=== PATIENT | female | born 1940 | race African-American/Black ===

== ENCOUNTER 2020-05-10 10:00 | Inpatient (IN) | payer OTHER ==
[~2020-05-10] VITALS: Ht 162.6 cm; Wt 61.0 kg
[2020-05-10] MEDS ORDERED: SODIUM CHLORIDE 0.9% 1000ML BAG (SEPSIS BOLUS) IV ONE (10:15)
[2020-05-10 10:43] LABS: BASOPHILS % 0.4 % (0.0-2.0); HEMATOCRIT. 48.6 % (36.0-48.0); HEMOGLOBIN. 15.5 g/dL (12.0-16.0); LYMPHOCYTES % 11.9 % (20.0-50.0); MEAN CORPUSCULAR HEMOGLOBIN 29.3 pg (28.0-32.0); MEAN CORPUSCULAR VOLUME 91.6 fL (81.0-99.0); MEAN PLATELET VOLUME 10.2 fl (7.4-10.4); MONOCYTES % 10.2 % (2.0-8.0); NEUTROPHILS % 77.5 % (40.0-76.0); PLATELET 353 x1000/uL (130-400); RED BLOOD CELL COUNT 5.31 mill/uL (4.2-5.4); RED CELL DISTRIBUTION WIDTH 15.1 % (11.6-14.6)
[2020-05-10 10:54] LABS: INR 1.1; PROTHROMBIN TIME 11.5 sec (9.6-11.0)
[2020-05-10 10:55] LABS: CHLORIDE 89 mEq/L (98-107)
[2020-05-10 11:09] LABS: CLARITY URINE CLOUDY (CLEAR); COLOR URINE YELLOW (YELLOW); KETONES URINE 1+ (NEGATIVE); LEUKOCYTE ESTERASE URINE 2+ (NEGATIVE); NITRITE URINE NEGATIVE (NEGATIVE); OCCULT BLOOD URINE 2+ (NEGATIVE); PROTEIN URINE TRACE (NEGATIVE); SPECIFIC GRAVITY URINE 1.028 (1.005-1.030); UROBILINOGEN URINE 0.2 E.U./dL (0.2-1.0)
[2020-05-10] MEDS ORDERED: CEFTRIAXONE 1 G PREMIX 50 ML IV ONE (11:30)
[2020-05-10] MEDS ORDERED: INSULIN REGULAR (HUMULIN R) 300UNITS/3ML VIAL IV ONE (11:30)
[2020-05-10] MEDS ORDERED: INSULIN REGULAR (DRIP) 100 UNITS in SODIUM CHLORIDE 0.9% 99 ML IV SCH (11:30)
[2020-05-10 13:07] LABS: BG BASE EXCESS -3.2 mmol/L (-2.0-2.0); BG CARBOXYHEMOGLOBIN 1.1 % (0.5-1.5); BG DEOXYHEMOGLOBIN 7.6 % (0.0-5.0); BG FRACTION INSPIRED OXYGEN 21; BG HCO3 ACT 18.9 mmol/L (22.0-26.0); BG METHEMOGLOBIN 0.4 % (0.0-1.5); BG OXYGEN SATURATION 92.3 % (92.0-98.5); BG OXYHEMOGLOBIN 90.9 % (94.0-97.0); BG PCO2 27.4 mmHg (35.0-45.0); BG PH 7.457 (7.350-7.450); BG PO2 69.1 mmHg (75.0-100.0); BG TOTAL HEMOGLOBIN 16.4 g/dL (12.0-18.0); BG VENT MODE ROOM AIR
[2020-05-10] MEDS ORDERED: DOCUSATE SODIUM 100MG CAPSULE PO PRN (16:30)
[2020-05-10] MEDS ORDERED: ACETAMINOPHEN 325MG TABLET PO PRN (16:30)
[2020-05-10] MEDS ORDERED: HYDROCODONE/ACETAMINOPHEN 5/325MG TABLET PO PRN (16:30)
[2020-05-10] MEDS ORDERED: INSULIN REGULAR (HUMULIN R) 300UNITS/3ML VIAL SUBCUT NR (16:30)
[2020-05-10] MEDS ORDERED: CLONIDINE 0.1MG TABLET PO PRN (16:30)
[2020-05-10] MEDS ORDERED: ONDANSETRON HCL 4MG/2ML INJ IV PRN (16:30)
[2020-05-10] MEDS: DEXTROSE 5% WATER 1,000 ML IV SCH (16:30)
[2020-05-10] MEDS ORDERED: LORAZEPAM 0.5MG TABLET PO PRN (16:30)
[2020-05-10 17:32] LABS: FOLIC ACID (FOLATE) SERUM >20 ng/mL ng/mL (>5.38)
[2020-05-10 17:44] LABS: VITAMIN B12 SERUM >2000 pg/mL pg/mL (211-911)
[2020-05-10] MEDS: INSULIN LISPRO 100 UNITS/ML SUBCUT SCH (17:50)
[2020-05-10 17:56] LABS: HEPATITIS B SURFACE ANTIGEN NEGATIVE
[2020-05-10 18:26] LABS: HEPATITIS A AB IGM NEGATIVE (NEGATIVE)
[2020-05-10] MEDS ORDERED: INSULIN GLARGINE UD 100 UNITS/ML SYR SUBCUT SCH (22:00)
[2020-05-11] VITALS (7 sets, daily range): BP systolic 107–156; BP diastolic 68–95
[2020-05-11] MEDS: INSULIN LISPRO 100 UNITS/ML SUBCUT SCH ×4 (07:05→21:28)
[2020-05-11] MEDS: DEXTROSE 5% WATER 1,000 ML IV SCH ×2 (07:54→20:00)
[2020-05-11] MEDS ORDERED: CEFTRIAXONE 1 G PREMIX 50 ML IV SCH (09:00)
[2020-05-11 10:03] LABS: BASOPHILS % 0.6 % (0.0-2.0); HEMATOCRIT. 43.1 % (36.0-48.0); HEMOGLOBIN. 14.5 g/dL (12.0-16.0); LYMPHOCYTES % 10.7 % (20.0-50.0); MEAN CORPUSCULAR HEMOGLOBIN 29.7 pg (28.0-32.0); MONOCYTES % 9.6 % (2.0-8.0); NEUTROPHILS % 79.1 % (40.0-76.0); PLATELET 305 x1000/uL (130-400); RED CELL DISTRIBUTION WIDTH 14.1 % (11.6-14.6)
[2020-05-11 10:10] LABS: CHLORIDE 118 mEq/L (98-107)
[2020-05-11] MEDS ORDERED: DEXTROSE 50% WATER 50ML SYRINGE IV PRN (15:45)
[2020-05-11] MEDS: INSULIN GLARGINE UD 100 UNITS/ML SYR SUBCUT SCH ×2 (18:06→21:27)
[2020-05-11] MEDS: BLOOD SUGAR DIAGNOSTIC STRIP TEST SCH (18:06)
[2020-05-12] VITALS (9 sets, daily range): BP systolic 120–147; BP diastolic 67–85
[2020-05-12] MEDS: BLOOD SUGAR DIAGNOSTIC STRIP TEST SCH ×5 (00:59→21:57)
[2020-05-12] MEDS: INSULIN LISPRO 100 UNITS/ML SUBCUT SCH ×4 (08:00→21:56)
[2020-05-12 08:01] LABS: BASOPHILS % 0.6 % (0.0-2.0); EOSINOPHILS % 0.4 % (0.0-5.0); HEMATOCRIT. 45.4 % (36.0-48.0); HEMOGLOBIN. 14.7 g/dL (12.0-16.0); LYMPHOCYTES % 14.1 % (20.0-50.0); MEAN CORPUSCULAR HEMOGLOBIN 29.5 pg (28.0-32.0); MEAN CORPUSCULAR VOLUME 91.2 fL (81.0-99.0); MEAN PLATELET VOLUME 10.5 fl (7.4-10.4); NEUTROPHILS % 75.9 % (40.0-76.0); PLATELET 282 x1000/uL (130-400); RED BLOOD CELL COUNT 4.98 mill/uL (4.2-5.4); RED CELL DISTRIBUTION WIDTH 14.7 % (11.6-14.6)
[2020-05-12 09:03] LABS: PHOSPHORUS 2.8 mg/dL (2.5-4.9)
[2020-05-12] MEDS ORDERED: POTASSIUM CHLORIDE 20MEQ/PACKET PO SCH (09:30)
[2020-05-12] MEDS: DEXTROSE 5% WATER 1,000 ML IV SCH ×2 (10:09→16:14)
[2020-05-12] MEDS ORDERED: CEFTRIAXONE 1,000 MG in DEXTROSE 5% WATER 50 ML IV SCH (12:00)
[2020-05-12] MEDS: PANTOPRAZOLE SODIUM 40 MG/VIAL IV SCH (21:56)
[2020-05-12] MEDS: INSULIN GLARGINE UD 100 UNITS/ML SYR SUBCUT SCH (21:57)
[2020-05-13] VITALS (9 sets, daily range): BP systolic 121–148; BP diastolic 54–79
[2020-05-13] MEDS: DEXTROSE 5% WATER 1,000 ML IV SCH ×2 (04:58→19:19)
[2020-05-13] MEDS: INSULIN LISPRO 100 UNITS/ML SUBCUT SCH ×3 (05:13→17:17)
[2020-05-13] MEDS: BLOOD SUGAR DIAGNOSTIC STRIP TEST SCH ×3 (05:13→17:17)
[2020-05-13 07:12] LABS: BASOPHILS % 0.9 % (0.0-2.0); HEMATOCRIT. 38.2 % (36.0-48.0); HEMOGLOBIN. 12.7 g/dL (12.0-16.0); INR 1.1; LYMPHOCYTES % 21.7 % (20.0-50.0); MEAN CORPUSCULAR HEMOGLOBIN 29.9 pg (28.0-32.0); MEAN CORPUSCULAR VOLUME 89.9 fL (81.0-99.0); MEAN PLATELET VOLUME 10.3 fl (7.4-10.4); MONOCYTES % 9.8 % (2.0-8.0); NEUTROPHILS % 65.6 % (40.0-76.0); PARTIAL THROMBOPLASTIN TIME 27.9 sec (23.4-31.0); PLATELET 260 x1000/uL (130-400); PROTHROMBIN TIME 11.1 sec (9.6-11.0); RED BLOOD CELL COUNT 4.25 mill/uL (4.2-5.4); RED CELL DISTRIBUTION WIDTH 14.5 % (11.6-14.6)
[2020-05-13 07:16] LABS: CHLORIDE 111 mEq/L (98-107)
[2020-05-13 07:23] LABS: PHOSPHORUS 3.1 mg/dL (2.5-4.9)
[2020-05-13] MEDS ORDERED: POTASSIUM CHLORIDE 20MEQ TABLET SR PO SCH (08:00)
[2020-05-13] MEDS: PANTOPRAZOLE SODIUM 40 MG/VIAL IV SCH (09:19)
[2020-05-13] MEDS ORDERED: POTASSIUM CHLORIDE INJ 40 MEQ in DEXT 5% WATER 250 ML IV NR (10:00)
[2020-05-13] MEDS: INSULIN GLARGINE UD 100 UNITS/ML SYR SUBCUT SCH ×2 (10:08→22:00)
[2020-05-13] MEDS ORDERED: MIDAZOLAM HCL 5 MG/5 ML VIAL ONE (16:30)
[2020-05-13] MEDS ORDERED: FENTANYL CITRATE/PF 50MCG/ML 2ML VIAL ONE (16:30)
[2020-05-14] VITALS (8 sets, daily range): BP systolic 120–163; BP diastolic 64–83
[2020-05-14] MEDS: INSULIN LISPRO 100 UNITS/ML SUBCUT SCH ×4 (06:00→18:00)
[2020-05-14] MEDS: BLOOD SUGAR DIAGNOSTIC STRIP TEST SCH ×4 (06:00→18:02)
[2020-05-14] MEDS: PANTOPRAZOLE SODIUM 40 MG/VIAL IV SCH ×2 (06:13→09:03)
[2020-05-14 07:14] LABS: BASOPHILS % 0.6 % (0.0-2.0); EOSINOPHILS % 2.2 % (0.0-5.0); HEMATOCRIT. 38.5 % (36.0-48.0); HEMOGLOBIN. 12.7 g/dL (12.0-16.0); LYMPHOCYTES % 22.9 % (20.0-50.0); MEAN CORPUSCULAR HEMOGLOBIN 29.6 pg (28.0-32.0); MEAN CORPUSCULAR VOLUME 90.2 fL (81.0-99.0); MEAN PLATELET VOLUME 9.6 fl (7.4-10.4); MONOCYTES % 10.7 % (2.0-8.0); NEUTROPHILS % 63.6 % (40.0-76.0); PLATELET 231 x1000/uL (130-400); RED BLOOD CELL COUNT 4.27 mill/uL (4.2-5.4); RED CELL DISTRIBUTION WIDTH 14.1 % (11.6-14.6)
[2020-05-14 07:39] LABS: CHLORIDE 111 mEq/L (98-107)
[2020-05-14 07:46] LABS: PHOSPHORUS 3.2 mg/dL (2.5-4.9)
[2020-05-14] MEDS: DEXTROSE 5% WATER 1,000 ML IV SCH (07:50)
[2020-05-14] MEDS: INSULIN GLARGINE UD 100 UNITS/ML SYR SUBCUT SCH ×2 (09:03→22:00)
[2020-05-14] MEDS ORDERED: MIDAZOLAM HCL 5 MG/5 ML VIAL IV PRN (18:00)
[2020-05-14] MEDS ORDERED: FENTANYL CITRATE/PF 50MCG/ML 2ML VIAL ONE (18:01)
[2020-05-14] MEDS ORDERED: MIDAZOLAM HCL 5 MG/5 ML VIAL ONE (18:01)
[2020-05-15] VITALS (8 sets, daily range): BP systolic 120–146; BP diastolic 69–76
[2020-05-15] MEDS: BLOOD SUGAR DIAGNOSTIC STRIP TEST SCH ×5 (00:55→23:34)
[2020-05-15] MEDS: DEXTROSE 5% WATER 1,000 ML IV SCH (03:08)
[2020-05-15] MEDS: INSULIN LISPRO 100 UNITS/ML SUBCUT SCH ×5 (06:00→23:50)
[2020-05-15 08:19] LABS: CHLORIDE 110 mEq/L (98-107)
[2020-05-15 08:25] LABS: PHOSPHORUS 3.5 mg/dL (2.5-4.9)
[2020-05-15 08:47] LABS: BASOPHILS % 0.6 % (0.0-2.0); EOSINOPHILS % 2.7 % (0.0-5.0); HEMATOCRIT. 36.4 % (36.0-48.0); HEMOGLOBIN. 12.2 g/dL (12.0-16.0); LYMPHOCYTES % 20.7 % (20.0-50.0); MEAN CORPUSCULAR HEMOGLOBIN 30.2 pg (28.0-32.0); MEAN CORPUSCULAR VOLUME 90.1 fL (81.0-99.0); MEAN PLATELET VOLUME 10.3 fl (7.4-10.4); MONOCYTES % 11.1 % (2.0-8.0); NEUTROPHILS % 64.9 % (40.0-76.0); PLATELET 243 x1000/uL (130-400); RED BLOOD CELL COUNT 4.04 mill/uL (4.2-5.4); RED CELL DISTRIBUTION WIDTH 14.4 % (11.6-14.6)
[2020-05-15] MEDS: FAMOTIDINE 20MG/2ML VIAL IV SCH (08:56)
[2020-05-15] MEDS ORDERED: DIATR MEGLU/DIATRIZOATE SOLN 120ML ONE (09:19)
[2020-05-15] MEDS: INSULIN GLARGINE UD 100 UNITS/ML SYR SUBCUT SCH ×2 (10:00→22:00)
[2020-05-16] VITALS (9 sets, daily range): BP systolic 108–138; BP diastolic 47–89
[2020-05-16] MEDS: BLOOD SUGAR DIAGNOSTIC STRIP TEST SCH ×4 (05:21→23:28)
[2020-05-16] MEDS: INSULIN LISPRO 100 UNITS/ML SUBCUT SCH ×4 (05:42→23:31)
[2020-05-16 08:36] LABS: BASOPHILS % 1.1 % (0.0-2.0); EOSINOPHILS % 3.2 % (0.0-5.0); HEMATOCRIT. 36.2 % (36.0-48.0); HEMOGLOBIN. 11.9 g/dL (12.0-16.0); LYMPHOCYTES % 24.7 % (20.0-50.0); MEAN CORPUSCULAR HEMOGLOBIN 29.3 pg (28.0-32.0); MEAN CORPUSCULAR VOLUME 89.2 fL (81.0-99.0); MEAN PLATELET VOLUME 9.4 fl (7.4-10.4); MONOCYTES % 11.8 % (2.0-8.0); NEUTROPHILS % 59.2 % (40.0-76.0); PLATELET 271 x1000/uL (130-400); RED BLOOD CELL COUNT 4.05 mill/uL (4.2-5.4); RED CELL DISTRIBUTION WIDTH 14.3 % (11.6-14.6)
[2020-05-16 08:40] LABS: CHLORIDE 106 mEq/L (98-107)
[2020-05-16] MEDS: FAMOTIDINE 20MG/2ML VIAL IV SCH (08:42)
[2020-05-16] MEDS: INSULIN GLARGINE UD 100 UNITS/ML SYR SUBCUT SCH ×2 (08:43→21:01)
[2020-05-16 08:45] LABS: PHOSPHORUS 2.8 mg/dL (2.5-4.9)
[2020-05-17] VITALS (8 sets, daily range): BP systolic 120–141; BP diastolic 68–78
[2020-05-17 06:48] LABS: BASOPHILS % 1.2 % (0.0-2.0); HEMATOCRIT. 32.5 % (36.0-48.0); HEMOGLOBIN. 10.9 g/dL (12.0-16.0); MEAN CORPUSCULAR HEMOGLOBIN 30.1 pg (28.0-32.0); MEAN CORPUSCULAR VOLUME 89.4 fL (81.0-99.0); NEUTROPHILS % 54.8 % (40.0-76.0); PLATELET 281 x1000/uL (130-400); RED BLOOD CELL COUNT 3.64 mill/uL (4.2-5.4); RED CELL DISTRIBUTION WIDTH 14.1 % (11.6-14.6)
[2020-05-17] MEDS: INSULIN LISPRO 100 UNITS/ML SUBCUT SCH ×2 (06:55→12:00)
[2020-05-17] MEDS: BLOOD SUGAR DIAGNOSTIC STRIP TEST SCH ×2 (06:57→12:30)
[2020-05-17 07:01] LABS: CHLORIDE 108 mEq/L (98-107)
[2020-05-17 07:17] LABS: PHOSPHORUS 3.5 mg/dL (2.5-4.9)
[2020-05-17] MEDS: IPRATROPIUM/ALBUTEROL 0.5-3(2.5)MG/3ML NEB HHN PRN ×2 (07:59→12:25)
[2020-05-17] MEDS: FAMOTIDINE 20MG/2ML VIAL IV SCH (08:10)
[2020-05-17] MEDS: INSULIN GLARGINE UD 100 UNITS/ML SYR SUBCUT SCH (09:39)
[2020-05-17] MEDS ORDERED: LANTUSUD SUBCUT (10:36)
== END 2020-05-17 18:49 | disposition home health service (06) | DRG 637 ==
LOC: ER 10:47 → EDBEDREQTM 20:53 → EDBEDREQSVC 20:53 → ENRESERV 05-11 09:06 → ER 05-11 10:15 → 5EST 05-11 13:15
PROVIDERS: ADMIT Internal Medicine; ATTEND Internal Medicine
PROC: 0D20XUZ Change Feeding Device in Upper Intestinal Tract, External Approach (ICD-10-PCS; principal; 2020-05-14)
DX: E11.00 Type 2 diabetes mellitus with hyperosmolarity without nonketotic hyperglycemic-hyperosmolar coma (NKHHC) (principal); G92 Toxic encephalopathy; J96.21 Acute and chronic respiratory failure with hypoxia; E87.0 Hyperosmolality and hypernatremia; N39.0 Urinary tract infection, site not specified; I13.0 Hypertensive heart and chronic kidney disease with heart failure and stage 1 through stage 4 chronic kidney disease, or unspecified chronic kidney disease; I50.30 Unspecified diastolic (congestive) heart failure; C14.0 Malignant neoplasm of pharynx, unspecified; E87.6 Hypokalemia; J44.9 Chronic obstructive pulmonary disease, unspecified; N18.2 Chronic kidney disease, stage 2 (mild); E11.22 Type 2 diabetes mellitus with diabetic chronic kidney disease; D72.821 Monocytosis (symptomatic); E87.5 Hyperkalemia; I25.10 Atherosclerotic heart disease of native coronary artery without angina pectoris; R13.10 Dysphagia, unspecified; Z20.822 Contact with and (suspected) exposure to COVID-19; R81 Glycosuria; R80.9 Proteinuria, unspecified; R00.0 Tachycardia, unspecified; R74.01 Elevation of levels of liver transaminase levels; R13.12 Dysphagia, oropharyngeal phase; K76.9 Liver disease, unspecified; Z78.1 Physical restraint status; Z82.49 Family history of ischemic heart disease and other diseases of the circulatory system; Z85.21 Personal history of malignant neoplasm of larynx; Z85.819 Personal history of malignant neoplasm of unspecified site of lip, oral cavity, and pharynx
CPT/HCPCS: 36415; 36600; 70544; 70553; 71045; 74021; 76700; 80048; 80053; 80061; 80076; 80320; 81003; 82140; 82375; 82607; 82746; 82805; 82962; 83036; 83605; 83735; 84100; 84132; 84145; 84443; 84484; 85025; 86705; 86709; 86803; 87340; 87426; 93005; 93306; 94640; 94660; 97162; 97530; 99291; C9113; J0696; J1815; J2250; J3010; J3480; J3490; J7030; J7050; J7060; J7070; Q9963; G0480

== ENCOUNTER 2023-11-18 14:45 | Emergency (ER) | payer MEDICARE, OTHER ==
[~2023-11-18] VITALS: Ht 165.1 cm; Wt 61.0 kg
[~2023-11-18 14:45] MED LIST: FURO-151 MT; SIMV-43 MT
[2023-11-18 14:53] VITALS: O2SAT 96
[2023-11-18 15:35] VITALS: TEMP 98.7
[2023-11-18 16:38] LABS: BASOPHILS % 0.9 % (0.0-2.0); EOSINOPHILS % 3.5 % (0.0-5.0); HEMOGLOBIN. 12.2 g/dL (12.0-16.0); LYMPHOCYTES % 29.2 % (20.0-50.0); MEAN CORPUSCULAR HEMOGLOBIN 29.6 pg (28.0-32.0); MEAN CORPUSCULAR VOLUME 89.8 fL (81.0-99.0); MONOCYTES % 12.9 % (2.0-8.0); NEUTROPHILS % 53.5 % (40.0-76.0); PLATELET 266 x1000/uL (130-400); RED BLOOD CELL COUNT 4.13 mill/uL (4.2-5.4); RED CELL DISTRIBUTION WIDTH 14.9 % (11.6-14.6)
[2023-11-18 16:43] LABS: CHLORIDE 104 mEq/L (98-107); SODIUM 139 mEq/L (136-145)
[2023-11-18 16:44] LABS: CALCIUM 9.8 mg/dL (8.7-10.4); CARBON DIOXIDE 30 mEq/L (21-32)
[2023-11-18 16:49] LABS: CREATININE 0.7 mg/dL (0.6-1.0); GLUCOSE 121 mg/dL (70-105); UREA NITROGEN BLOOD 27 mg/dL (9-23)
[2023-11-18 16:51] LABS: ALANINE AMINOTRANSFERASE 28 IU/L (10-49); ALBUMIN 4.4 g/dL (3.2-4.8); ASPARTATE AMINOTRANSFERASE 37 IU/L (<34); BILIRUBIN TOTAL 0.4 mg/dL (0.1-1.0); PROTEIN TOTAL 7.7 g/dL (6.0-8.3)
[2023-11-18 17:00] LABS: TROPONIN I HIGH SENSITIVITY 63 ng/L (3.0-34)
[2023-11-18] MEDS ORDERED: POTA-205 MT (19:00)
[2023-11-18] MEDS ORDERED: FURO-151 MT (19:00)
[2023-11-18 20:21] VITALS: BP 159/85; PULSE 88; RESP 21
== END 2023-11-18 20:22 | disposition home or self-care (01) ==
LOC: ER 14:45
DX: R22.43 Localized swelling, mass and lump, lower limb, bilateral (principal); I25.10 Atherosclerotic heart disease of native coronary artery without angina pectoris; I11.0 Hypertensive heart disease with heart failure; I50.9 Heart failure, unspecified; H40.9 Unspecified glaucoma; Z85.9 Personal history of malignant neoplasm, unspecified
CPT/HCPCS: 36415; 80053; 83880; 84484; 85025; 93005; 93970; 99284